=== PATIENT | female | born 1950 | race Caucasian/White ===

== ENCOUNTER 2024-04-28 09:39 | Outpatient (CLI) | payer MEDICARE ==
[2024-04-28] MEDS ORDERED: Magnevist 469MG/ML 20 ML VIAL ONE (12:01)
== END 2024-04-28 09:40 | disposition home or self-care (01) ==
LOC: MRI 09:39
PROVIDERS: ATTEND Neurological Surgery
DX: D49.6 Neoplasm of unspecified behavior of brain (principal)
CPT/HCPCS: 70553; 76376